=== PATIENT | male | born 1955 | race American Indian/Alaskan Native ===

== ENCOUNTER 2017-10-30 18:00 | Emergency (ER) | payer OTHER ==
[2017-10-30 18:11] VITALS: BP 152/84
[2017-10-30] MEDS ORDERED: MOTRIN PO ONE (20:54)
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
== END 2017-10-30 23:00 | disposition home or self-care (01) ==
LOC: ED 18:00
DX: S13.4XXA Sprain of ligaments of cervical spine, initial encounter (principal); R51 Headache; I10 Essential (primary) hypertension; E11.9 Type 2 diabetes mellitus without complications; F31.9 Bipolar disorder, unspecified; Z86.11 Personal history of tuberculosis; V49.49XA Driver injured in collision with other motor vehicles in traffic accident, initial encounter; Y93.89 Activity, other specified; Y92.89 Other specified places as the place of occurrence of the external cause; Y99.8 Other external cause status
CPT/HCPCS: 70450; 72125